=== PATIENT | female | born 1965 | race African-American/Black ===

== ENCOUNTER 2021-11-14 13:52 | Emergency (ER) | payer OTHER ==
[~2021-11-14] VITALS: Ht 165.1 cm; Wt 61.2 kg
[2021-11-14 14:13] VITALS: BP 144/83
[2021-11-14] MEDS ORDERED: TDAP [DIPH/PERTUSSIS/TET] 0.5 ML VIAL IM ONE ×2 (14:56→15:00)
== END 2021-11-14 15:20 | disposition home or self-care (01) ==
LOC: ER 13:56
DX: S00.01XA Abrasion of scalp, initial encounter (principal); W22.8XXA Striking against or struck by other objects, initial encounter; Y93.89 Activity, other specified; Y92.89 Other specified places as the place of occurrence of the external cause; Y99.8 Other external cause status
CPT/HCPCS: 90715